=== PATIENT | female | born 1980 | race Caucasian/White ===

== ENCOUNTER 2016-09-03 11:43 | Outpatient (CLI) ==
[2014-04-11 00:38] VITALS: BMI 35.7
--- NOTE | 2016-09-03 12:43 | DI ---
EXAM: KUB HISTORY: Abdominal pain. FINDINGS: Normal bowel gas pattern. No organomegaly or suspicious calcification. There are surgica l clips superimposed over the right upper quadrant suggesting a post cholecystectomy state. COMPARISON: Normal bowel gas pattern.
== END 2016-09-03 11:44 | disposition home or self-care (01) ==
LOC: RAD 11:43
PROVIDERS: ATTEND Nurse Practitioner Family
DX: R10.9 Unspecified abdominal pain (principal)

== ENCOUNTER 2016-09-30 13:44 | Outpatient (CLI) ==
[2014-04-11 00:38] VITALS: BMI 35.7
[2016-09-30 14:14] LABS: FLU INTERNAL QC INTERNAL QC VALID; RAPID FLU A NEGATIVE (NEGATIVE); RAPID FLU B NEGATIVE (NEGATIVE)
[2016-09-30 15:24] LABS: BASOPHILS # (AUTO) 0.1 K/uL (0-0.2); BASOPHILS % (AUTO) 0.5 % (0.0-3.0); EOSINOPHILS # (AUTO) 0.2 K/ul (0.0-0.7); EOSINOPHILS % (AUTO) 1.6 % (0.0-7.0); HEMATOCRIT 42.3 % (37.0-47.0); HEMOGLOBIN 14.5 g/dl (12.0-16.0); IMMATURE GRANULOCYTE % (AUTO) 0.4 % (0.0-5.0); LYMPHOCYTES # (AUTO) 2.2 K/uL (0.60-3.4); LYMPHOCYTES % (AUTO) 19.8 (10.0-50.0); MEAN CORPUSCULAR HEMOGLOBIN 30.3 pg (27.0-31.0); MEAN CORPUSCULAR HGB CONC 34.3 (31.8-35.4); MEAN CORPUSCULAR VOLUME 88.5 fl (81.0-99.0); MONOCYTES # (AUTO) 0.6 K/uL (0.4-2.0); MONOCYTES % (AUTO) 5.1 (0-10); NEUTROPHILS # (AUTO) 7.9 K/ul (2.0-6.9); NEUTROPHILS % (AUTO) 72.6; PLATELET COUNT 263 10^3/uL (140-440); RED BLOOD COUNT 4.78 10^6/ul (4.20-5.40); WHITE BLOOD COUNT 10.89 K/ul (4.6-10.2)
[2016-09-30 15:30] LABS: MONO INTERNAL QC INTERNAL QC VALID
[2016-09-30 15:49] LABS: ALBUMIN 3.9 g/dL (3.4-5.0); ANION GAP 11.3; BILIRUBIN,TOTAL 0.52 mg/dL (0.00-1.20); BUN/CREATININE RATIO 9.52; CALCIUM 9.8 mg/dL (8.2-10.2); CREATININE 1.05 mg/dL (0.60-1.30); POTASSIUM 3.3 mmol/L (3.5-5.10); TOTAL PROTEIN 7.8 g/dL (6.4-8.2)
--- NOTE | 2016-09-30 16:12 | DI ---
EXAM: Two x-rays of the abdomen. Comparison: 09/03/2016. Reason for exam: Left flank pain. FINDINGS: Surgical clips are seen in the right upper quadrant consistent with cholecystectomy. The re are no definite calcific densities seen overlying the expected location of the kidneys or urinary bladder. The bowel gas pattern is nonspecific and nonobstructive. Impression: 1. No radiographic evidence of urolithiasis or nephrolithiasis. 2. Nonspecific, nonobstructive bowel gas pattern.
== END 2016-09-30 13:45 | disposition home or self-care (01) ==
LOC: LAB 13:44
PROVIDERS: ATTEND Nurse Practitioner Family
DX: R51 Headache (principal); R53.83 Other fatigue; R10.9 Unspecified abdominal pain; R50.9 Fever, unspecified; R52 Pain, unspecified; R19.7 Diarrhea, unspecified
CPT/HCPCS: 36415; 80053; 85025; 86308; 87651; 87804; 87880

== ENCOUNTER 2016-10-20 14:52 | Outpatient (CLI) ==
[2014-04-11 00:38] VITALS: BMI 35.7
--- NOTE | 2016-10-20 15:28 | DI ---
EXAM: Chest two view, frontal and lateral views. HISTORY: Chest pain. COMPARISON: None available. FINDINGS: The heart size is normal. There is no pulmonary vascular congestion. The lungs are jo r save for linear scarring or subsegmental atelectasis in the right middle lobe. No pleural effusio n or pneumothorax is seen. No acute osseous abnormality identified. 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 Clips seen in the right upper quadrant of the abdo men. IMPRESSION: No acute cardiopulmonary process.
--- NOTE | 2016-10-20 15:30 | DI ---
EXAM: Three views of the thoracic spine. History: Thoracic back pain. Findings: Cholecystectomy clips. No acute fracture or subluxation of the thoracic spine. A few ti ny anterior osteophytes. Subsegmental atelectasis or infiltrate within the right middle lobe. Impression: 1. No acute osseous abnormality. 2. Minimal degenerative disc disease. 3. Subsegmental atelectasis or pneumonia within the right middle lobe.
--- NOTE | 2016-10-20 15:31 | DI ---
EXAM: Unilateral ribs HISTORY: Pleurodynia COMPARISON: None TECHNIQUE: Multiple views left ribs were performed FINDINGS/IMPRESSION: No left rib fractures identified. 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 No visible pneumothorax.
== END 2016-10-20 14:53 | disposition home or self-care (01) ==
LOC: RAD 14:52
PROVIDERS: ATTEND Nurse Practitioner Family
DX: R07.81 Pleurodynia (principal); R25.3 Fasciculation; M54.9 Dorsalgia, unspecified; Z98.890 Other specified postprocedural states

== ENCOUNTER 2016-10-29 07:19 | Outpatient (CLI) ==
[2014-04-11 00:38] VITALS: BMI 35.7
[2016-10-29 07:47] LABS: BASOPHILS % (AUTO) 0.7 % (0.0-3.0); EOSINOPHILS # (AUTO) 0.1 K/ul (0.0-0.7); EOSINOPHILS % (AUTO) 1.9 % (0.0-7.0); HEMATOCRIT 45.9 % (37.0-47.0); HEMOGLOBIN 15.6 g/dl (12.0-16.0); IMMATURE GRANULOCYTE % (AUTO) 0.6 % (0.0-5.0); LYMPHOCYTES # (AUTO) 1.1 K/uL (0.60-3.4); LYMPHOCYTES % (AUTO) 19.8 (10.0-50.0); MEAN CORPUSCULAR HEMOGLOBIN 30.2 pg (27.0-31.0); MEAN CORPUSCULAR VOLUME 88.8 fl (81.0-99.0); MONOCYTES # (AUTO) 0.6 K/uL (0.4-2.0); MONOCYTES % (AUTO) 10.4 (0-10); NEUTROPHILS # (AUTO) 3.6 K/ul (2.0-6.9); NEUTROPHILS % (AUTO) 66.6; PLATELET COUNT 200 10^3/uL (140-440); RED BLOOD COUNT 5.17 10^6/ul (4.20-5.40); WHITE BLOOD COUNT 5.36 K/ul (4.6-10.2)
[2016-10-29 07:58] LABS: MONO INTERNAL QC INTERNAL QC VALID
[2016-10-29 08:01] LABS: ALBUMIN 3.7 g/dL (3.4-5.0); ANION GAP 13.9; BILIRUBIN,TOTAL 0.68 mg/dL (0.00-1.20); BUN/CREATININE RATIO 8.82; CALCIUM 9.2 mg/dL (8.2-10.2); CREATININE 1.02 mg/dL (0.60-1.30); POTASSIUM 3.9 mmol/L (3.5-5.10); TOTAL PROTEIN 7.4 g/dL (6.4-8.2)
--- NOTE | 2016-10-29 09:58 | CT ---
EXAM: CT thoracic spine with contrast HISTORY: Rib pain with history of pneumonia. COMPARISON: Thoracic spine x-ray 10/20/2016 and rib x-rays 10/20/2016 TECHNIQUE: Serial axial images of the thoracic spine were obtained after the administration of 100 CC of Visipaque 320 IV contrast. These were viewed in multiple planes. FINDINGS: Vertebral bodies demonstrate normal height, disc space and alignment. There are few scatt ered anterior disc osteophytes. There is no lytic or blastic lesion. There is mild scattered facet arthropathy. 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 There is no abnormal curvature of the spine. Soft tissues demonstrate patchy ground-glass opacities throughout the left lower lobe. The soft tis sues demonstrate ascending aortic ectasia. Limited views of the soft tissues in the upper abdomen d emonstrate a low attenuation lesion in the right hepatic lobe incompletely evaluated measuring 1 cm in diameter. There is no central or neural foraminal narrowing identified. IMPRESSION: 1. Left lower lobe ground-glass nodularity consistent with small airways infection/early bronchopne umonia. 2. No acute osseous abnormality of the thoracic spine with left rib deformity at L4-L5 consistent w ith findings on prior x-ray. 3. Indeterminate low attenuation lesion in the right hepatic dome relatively unchanged since 016 suggestive of hemangioma.
== END 2016-10-29 07:20 | disposition home or self-care (01) ==
LOC: RAD 07:19
PROVIDERS: ATTEND Nurse Practitioner Family
DX: Q76.6 Other congenital malformations of ribs (principal); R53.83 Other fatigue; R51 Headache
CPT/HCPCS: 36415; 80053; 85025; 86308; 87651; 87880

== ENCOUNTER 2016-11-02 14:54 | Outpatient (CLI) ==
[2014-04-11 00:38] VITALS: BMI 35.7
== END 2016-11-02 14:55 | disposition home or self-care (01) ==
LOC: CAR 14:54
PROVIDERS: ATTEND Nurse Practitioner Family
DX: R07.81 Pleurodynia (principal); R20.8 Other disturbances of skin sensation; R52 Pain, unspecified
CPT/HCPCS: 93005; 93010

== ENCOUNTER 2016-12-16 07:39 | Outpatient (CLI) ==
[2014-04-11 00:38] VITALS: BMI 35.7
[2016-12-16 08:14] LABS: CHOL/HDL RATIO 4.5 (4.5-5.5)
== END 2016-12-16 07:40 | disposition home or self-care (01) ==
LOC: LAB 07:39
PROVIDERS: ATTEND Nurse Practitioner Family
DX: E78.1 Pure hyperglyceridemia (principal)
CPT/HCPCS: 36415; 80061

== ENCOUNTER 2017-02-10 13:39 | Outpatient (CLI) ==
[2014-04-11 00:38] VITALS: BMI 35.7
[2017-02-10 13:52] LABS: BASOPHILS # (AUTO) 0.1 K/uL (0-0.2); BASOPHILS % (AUTO) 0.5 % (0.0-3.0); EOSINOPHILS # (AUTO) 0.1 K/ul (0.0-0.7); EOSINOPHILS % (AUTO) 1.3 % (0.0-7.0); HEMATOCRIT 43.2 % (37.0-47.0); HEMOGLOBIN 14.7 g/dl (12.0-16.0); IMMATURE GRANULOCYTE % (AUTO) 0.4 % (0.0-5.0); LYMPHOCYTES # (AUTO) 1.8 K/uL (0.60-3.4); LYMPHOCYTES % (AUTO) 19.1 (10.0-50.0); MEAN CORPUSCULAR HEMOGLOBIN 30.1 pg (27.0-31.0); MEAN CORPUSCULAR VOLUME 88.3 fl (81.0-99.0); MONOCYTES # (AUTO) 0.4 K/uL (0.4-2.0); MONOCYTES % (AUTO) 4.2 (0-10); NEUTROPHILS # (AUTO) 7.1 K/ul (2.0-6.9); NEUTROPHILS % (AUTO) 74.5; PLATELET COUNT 253 10^3/uL (140-440); RED BLOOD COUNT 4.89 10^6/ul (4.20-5.40); WHITE BLOOD COUNT 9.52 K/ul (4.6-10.2)
[2017-02-10 14:08] LABS: ALBUMIN/GLOBULIN RATIO 1.05; BILIRUBIN,TOTAL 0.76 mg/dL (0.00-1.20); BUN/CREATININE RATIO 6.93; CALCIUM 9.8 mg/dL (8.2-10.2); CREATININE 1.01 mg/dL (0.60-1.30); TOTAL PROTEIN 7.8 g/dL (6.4-8.2)
== END 2017-02-10 13:40 | disposition home or self-care (01) ==
LOC: LAB 13:39
PROVIDERS: ATTEND Nurse Practitioner Family
DX: R19.7 Diarrhea, unspecified (principal)
CPT/HCPCS: 36415; 80053; 82150; 83690; 85025

== ENCOUNTER 2017-06-16 07:34 | Outpatient (CLI) ==
[2014-04-11 00:38] VITALS: BMI 35.7
[2017-06-16 08:35] LABS: ALBUMIN 3.4 g/dL (3.4-5.0); ALBUMIN/GLOBULIN RATIO 0.87; ANION GAP 11.9; BILIRUBIN,TOTAL 0.7 mg/dL (0.00-1.20); BUN/CREATININE RATIO 12.5; CALCIUM 9.4 mg/dL (8.2-10.2); CHOL/HDL RATIO 4.5 (4.5-5.5); CREATININE 1.04 mg/dL (0.60-1.30); POTASSIUM 3.9 mmol/L (3.5-5.10); TOTAL PROTEIN 7.3 g/dL (6.4-8.2)
== END 2017-06-16 07:35 | disposition home or self-care (01) ==
LOC: LAB 07:34
PROVIDERS: ATTEND Nurse Practitioner Family
DX: E78.5 Hyperlipidemia, unspecified (principal); I10 Essential (primary) hypertension
CPT/HCPCS: 36415; 80053; 80061; 84443

== ENCOUNTER 2017-09-23 15:22 | Outpatient (CLI) ==
[2014-04-11 00:38] VITALS: BMI 35.7
== END 2017-09-23 15:23 | disposition home or self-care (01) ==
LOC: LAB 15:22
PROVIDERS: ATTEND Emergency Medicine
DX: J06.9 Acute upper respiratory infection, unspecified (principal); R19.7 Diarrhea, unspecified; E78.5 Hyperlipidemia, unspecified; I10 Essential (primary) hypertension
CPT/HCPCS: 36415; 80053; 85025

== ENCOUNTER 2017-09-29 09:11 | Outpatient (CLI) ==
[2014-04-11 00:38] VITALS: BMI 35.7
== END 2017-09-29 09:12 | disposition home or self-care (01) ==
LOC: LAB 09:11
PROVIDERS: ATTEND Nurse Practitioner Family
DX: R00.2 Palpitations (principal); R00.0 Tachycardia, unspecified
CPT/HCPCS: 36415; 80053; 84443; 85025; 93005; 93010

== ENCOUNTER 2017-12-27 08:04 | Outpatient (CLI) ==
[2014-04-11 00:38] VITALS: BMI 35.7
== END 2017-12-27 08:05 | disposition home or self-care (01) ==
LOC: LAB 08:04
PROVIDERS: ATTEND Nurse Practitioner Family
DX: E78.5 Hyperlipidemia, unspecified (principal); I10 Essential (primary) hypertension
CPT/HCPCS: 36415; 80053; 80061; 85025

== ENCOUNTER 2018-04-09 14:16 | Emergency (ER) ==
[2018-04-09 14:25] VITALS: BP 152/88; TEMP 98.5; BMI 38.2
[2018-04-09 15:04] LABS: URINE PREGNANCY TEST NEGATIVE (NEGATIVE)
--- NOTE | 2018-04-09 15:33 | CT ---
EXAM: CT scan of the abdomen pelvis without contrast HISTORY: Epigastric pain TECHNIQUE: Helical imaging of the abdomen pelvis was performed without contrast. 5 mm thin axial im ages and coronal and sagittal reconstructions were provided for interpretation. Comparison 05/13/2016 CT scan of the abdomen and pelvis. FINDINGS: The patient has had previous cholecystectomy. The liver, spleen, pancreas, adrenal glands and kidneys appear normal. The proximal ureters are normal size. The small and large bowel loops a re normal caliber. There is no free air. No retroperitoneal abnormalities are seen. The helical images obtained through the pelvis demonstrate a normal appearance of the rectum, urinary bladder. There is no free fluid seen within the pelvis. There is mild diverticular disease of the s igmoid colon without acute inflammation. The appendix appears normal. Lung bases are clear. No lyti c or blastic lesions are seen within the osseous structures. IMPRESSION: There is no bowel obstruction or acute inflammatory change seen within the abdomen and p tori. Previous cholecystectomy. There is no ureteral obstruction.
--- NOTE | 2018-04-09 16:13 | ED.PDOC ---
General ED Provider: Dr. LASHAY SADLER Chief Complaint: Abdominal Pain Stated Complaint: abdominal pain Time Seen by Physician: 14:17 (seen with dottie jean) Mode of Arrival: Walk-In Information Source: Patient Exam Limitations: No limitations Primary Care Provider: JOSE MANUEL VICENTE Nursing and Triage Documentation Reviewed and Agree: Yes Does patient meet sepsis criteria?: No System Inflammatory Response Syndrome: Not Applicable Sepsis Protocol: For patient's 13 years and over: Temp is 96.8 and below OR 101 and greater Pulse >90 BPM Resp >20/minute Acutely Altered Mental Status Are patient's symptoms suggestive of a new infection, such as: -Pneumonia -Skin, Soft Tissue -Endocarditis -UTI -Bone, Joint Infection -Implantable Device -Acute Abdominal Infection -Wound Infection -Meningitis -Blood Stream Catheter Infection -Unknown GI Complaint Exam - Abdominal Pain Complaint/Exam Onset: Gradual Duration: weeks Symptoms Are: Still present Timing: Intermittent Initial Severity: Mild Current Severity: Mild Location of Pain: Epigastric Radiates To: Denies: Chest, Back, Flank, LLQ, RLQ, Inguinal Character: Reports: Aching Aggravating: Reports: None Alleviating: Reports: None Associated Signs and Symptoms: Denies: Diaphoresis, Fever, Cough, Chest pain, Dizziness, Back pain, Constipation, Blood in stool, Dysuria, Urinary frequency, Decreased urine output, Decreased appetite, Vaginal bleeding, Vaginal discharge , Nausea, Vomiting, Diarrhea, Sore throat, Decreased activity Related History: Reports: Similar episode : 2 Para: 2 Hx Total # of Abortions (Spontaneous & Elective): 0 AAA Risk Factors: Reports: None Cardiac Risk Factors: Reports: None Ectopic Risk Factors: Reports: Maternal age >30 Ovarian Torsion Risk Factors: Reports: Ovarian cysts Surgical Obstruction Risk Factors: Reports: None Related Surgical History: Reports: None Patient Rh Status: Unknown Abdominal Findings: Present: None Differential Diagnoses: Constipation, Diverticulitis, Pancreatitis, Irritable Bowel Syndrome, Renal Colic, Ureteral Stone, UTI Review of Systems - Review Of Systems Constitutional: Reports: No symptoms Eyes: Reports: No symptoms Ears, Nose, Mouth, Throat: Reports: No symptoms Respiratory: Reports: No symptoms Cardiac: Reports: No symptoms GI: Reports: Abdominal pain, Diarrhea : Reports: No symptoms Musculoskeletal: Reports: No symptoms Skin: Reports: No symptoms Neurological: Reports: No symptoms Endocrine: Reports: No symptoms Hematologic/Lymphatic: Reports: No symptoms All Other Systems: Reviewed and Negative Past Medical History - Past Medical History Previously Healthy: Yes Endocrine: Reports: None Cardiovascular: Reports: None Respiratory: Reports: None Hematological: Reports: None Gastrointestinal: Reports: None Genitourinary: Reports: None Neuro/Psych: Reports: None Musculoskeletal: Reports: None Cancer: Reports: None Last Menstrual Period: now - Surgical History General Surgical History: Reports: None - Family History Family History: Reports: None - Social History Smoking Status: Never smoker Hx Substance Use: No Alcohol Screening: None Physical Exam - Physical Exam Appearance: Well-appearing, No pain distress, Well-nourished Eyes: MERCY, EOMI, Conjunctiva clear ENT: Ears normal, Nose normal, Oropharynx normal Respiratory: Airway patent, Breath sounds clear, Breath sounds equal, Respirations nonlabored Cardiovascular: RRR, Pulses normal, No rub, No murmur GI/: Soft, Nontender, No masses, Bowel sounds normal, No Organomegaly Musculoskeletal: Normal strength, ROM intact, No edema, No calf tenderness Skin: Warm, Dry, Normal color Neurological: Sensation intact, Motor intact, Reflexes intact, Cranial nerves intact, Alert, Oriented Psychiatric: Affect appropriate, Mood appropriate Interpretation - Radiology Interpretation Radiology Interpretation By: Radiologist Radiology Results: No acute changes Critical Care Note - Critical Care Note Total Time (mins): 0 Course - Course Hematology/Chemistry: 04/09/18 14:35 04/09/18 14:35 Orders, Labs, Meds: Lab Review 04/09/18 04/09/18 04/09/18 14:35 14:35 14:53 WBC 9.14 RBC 4.53 Hgb 13.5 Hct 38.8 MCV 85.7 MCH 29.8 MCHC 34.8 RDW Coeff of Josafat 12.5 Plt Count 231 Immature Gran % (Auto) 0.3 Neut % (Auto) 70.3 Lymph % (Auto) 22.4 [place] % (Auto) 4.8 Eos % (Auto) 1.8 Baso % (Auto) 0.4 Immature Gran # (Auto) 0.0 Neut # (Auto) 6.4 Lymph # (Auto) 2.1 [place] # (Auto) 0.4 Eos # (Auto) 0.2 Baso # (Auto) 0.0 Sodium 135.8 L Potassium 3.40 L Chloride 101.9 Carbon Dioxide 29.1 Anion Gap 8.20 BUN 12.2 Creatinine 1.03 Estimated GFR (MDRD) 60.00 BUN/Creatinine Ratio 11.84 Glucose 109.6 H Calcium 9.92 Total Bilirubin 0.45 AST 32.9 ALT 23.7 Alkaline Phosphatase 44.9 Total Protein 7.22 Albumin 4.11 Globulin 3.11 Albumin/Globulin Ratio 1.32 Amylase 81.2 Lipase 179.8 Urine Color Yellow Urine Clarity Clear Urine pH 5.5 Ur Specific [place] >=1.030 Urine Protein Negative Urine Glucose (UA) Negative Urine Ketones Negative Urine Blood Trace-intact Urine Nitrite Negative Urine Bilirubin Negative Urine Urobilinogen 0.2 Ur Leukocyte Esterase Negative Urine Microscopic RBC 0-2 Ur Squamous Epith Cells Not present Urine Test 04/09/18 14:53 WBC RBC Hgb Hct MCV MCH MCHC RDW Coeff of Josafat Plt Count Immature Gran % (Auto) Neut % (Auto) Lymph % (Auto) [place] % (Auto) Eos % (Auto) Baso % (Auto) Immature Gran # (Auto) Neut # (Auto) Lymph # (Auto) [place] # (Auto) Eos # (Auto) Baso # (Auto) Sodium Potassium Chloride Carbon Dioxide Anion Gap BUN Creatinine Estimated GFR (MDRD) BUN/Creatinine Ratio Glucose Calcium Total Bilirubin AST ALT Alkaline Phosphatase Total Protein Albumin Globulin Albumin/Globulin Ratio Amylase Lipase Urine Color Urine Clarity Urine pH Ur Specific [place] Urine Protein Urine Glucose (UA) Urine Ketones Urine Blood Urine Nitrite Urine Bilirubin Urine Urobilinogen Ur Leukocyte Esterase Urine Microscopic RBC Ur Squamous Epith Cells Urine Test Negative Orders Category Date Time Status AMYLASE Stat LAB 04/09/18 14:35 Completed CBC W/ AUTO DIFF Stat LAB 04/09/18 14:35 Completed COMPREHENSIVE METABOLIC PANEL Stat LAB 04/09/18 14:35 Completed LIPASE Stat LAB 04/09/18 14:35 Completed URINALYSIS C & S IF INDICATED Stat LAB 04/09/18 14:53 Completed URINE Stat LAB 04/09/18 14:[address] ABDOMEN/PELVIS WO CONTRAST Stat RADS 04/09/18 14:32 Completed Vital Signs: Temp Pulse Resp BP Pulse Ox 04/09/18 14:16 98.5 F 116 H 20 152/88 H 98 Departure - Departure Time of Disposition: 16:12 Disposition: HOME SELF-CARE Discharge Problem: Abdominal pain Instructions: Abdominal Pain (ED) Condition: Good Pt referred to PMD for follow-up: Yes IPMP verified?: No Additional Instructions: Please call your Family Physician as soon as possible to schedule a follow-up appointment. AND MAKENNA DISCUSSED WITH YOU, THE ABDOMINAL PAIN CAN EVOLVE IF , YOUR SICKER, FEVERISH, VOMITING THIS MAY MEAN THAT YOUR CONDITION IS GETTING WORSE AND WE MUST RECHECK YOUR ABDOMEN . AT THIS THIS NO SURGICAL ISSUES ARE NOTED Allergies/Adverse Reactions: Allergies prednisone Allergy (Intermediate, Verified 04/09/18 14:26) Rash cephalexin monohydrate [From Keflex] Allergy (Verified 04/09/18 14:26) Rash amoxicillin [Amoxicillin] Adverse Reaction (Verified 04/09/18 14:26) Chest Tightness cefprozil [From Cefzil] Adverse Reaction (Verified 04/09/18 14:26) Nausea erythromycin base [From E-Mycin] Adverse Reaction (Verified 04/09/18 14:26) Nausea ofloxacin [From Floxin] Adverse Reaction (Verified 04/09/18 14:26) Nausea Disposition Discussed With: Patient, Family
== END 2018-04-09 16:21 | disposition home or self-care (01) ==
LOC: ED 14:16
DX: R10.9 Unspecified abdominal pain (principal)
CPT/HCPCS: 36415; 80053; 81001; 81025; 82150; 83690; 85025; 99283

== ENCOUNTER 2018-06-20 10:05 | Outpatient (CLI) ==
--- NOTE | 2018-06-20 10:45 | DI ---
EXAM: Abdomen series. HISTORY: Generalized abdominal pain. COMPARISON: CT 04/09/2018. TECHNIQUE: Supine and upright views of the abdomen. FINDINGS: There is moderate gaseous distension of multiple small bowel loops with a few air-fluid le vels on the upright film. No free air seen under the diaphragm. Air and stool present in the colon. No soft tissue masses identified. Cholecystectomy clips are present. Phleboliths seen in the pelv is. Lung bases are clear. Mild thoracolumbar spinal curvature noted. IMPRESSION: Nonspecific small bowel pattern which could be due to enteritis, ileus or early obstruction.
== END 2018-06-20 10:06 | disposition home or self-care (01) ==
LOC: FCC-LAB 10:05
PROVIDERS: ATTEND Nurse Practitioner Family
DX: R10.84 Generalized abdominal pain (principal)
CPT/HCPCS: 36415; 80053; 81001; 83690; 85025

== ENCOUNTER 2018-06-27 07:55 | Outpatient (CLI) | END 2018-06-27 07:56 | disposition home or self-care (01) | LOC: LAB 07:55 | PROVIDERS: ATTEND Nurse Practitioner Family | DX: I10 Essential (primary) hypertension (principal); E78.5 Hyperlipidemia, unspecified | CPT/HCPCS: 36415; 80053; 80061 ==

== ENCOUNTER 2018-10-18 14:59 | Outpatient (CLI) | END 2018-10-18 15:00 | disposition home or self-care (01) | LOC: RHC-LAB 14:59 | PROVIDERS: ATTEND Nurse Practitioner Family | DX: J02.9 Acute pharyngitis, unspecified (principal) | CPT/HCPCS: 87651 ==

== ENCOUNTER 2018-11-07 10:35 | Outpatient (CLI) ==
--- NOTE | 2018-11-07 11:29 | MAMMO ---
EXAM: Bilateral digital screening mammogram (2-D and 3-D) History: Baseline screening Findings: MLO and CC views of bilateral breasts demonstrate scattered fibroglandular breast parenchy ma. CAD was reviewed by the radiologist. Tomosynthesis was performed. There is a focal asymmetry w ithin the right breast at 12 o'clock posterior depth. No suspicious microcalcifications. Impression: Indeterminate 12 o'clock right breast asymmetry. Recommend further evaluation with spot compression views with tomosynthesis BI-RADS 0, incomplete. Further evaluation needed.
== END 2018-11-07 10:36 | disposition home or self-care (01) ==
LOC: RAD 10:35
PROVIDERS: ATTEND Nurse Practitioner Family
DX: Z12.31 Encounter for screening mammogram for malignant neoplasm of breast (principal)

== ENCOUNTER 2018-11-11 09:25 | Outpatient (CLI) ==
--- NOTE | 2018-11-11 10:18 | US ---
EXAM: Right breast ultrasound. History: Right breast asymmetry. Comparison: Right diagnostic mammogram 11/11/2018 Technique: Multiple sonographic images through the right breast were obtained. Color duplex Doppler was used to interrogate vascular flow. Findings: No masses, cysts or fluid collections identified. Impression: Although no sonographic abnormalities are identified, recommend 6-month follow-up right mammogram to document stability of the probably benign right breast asymmetry. BI-RADS 3, probably benign
--- NOTE | 2018-11-11 10:23 | MAMMO ---
EXAM: Right digital diagnostic mammogram (2-D and 3-D) History: Right breast asymmetry. Comparison: Bilateral mammogram 11/07/2018 Findings: Additional views of the right breast were obtained. Tomosynthesis was performed. Questio nable mass within the right breast posterior depth at 12 o'clock . No suspicious microcalcifications . Impression: A questionable mass within the right breast posterior depth at 12 o'clock is indetermina te. Recommend further evaluation with right breast ultrasound. BI-RADS 0, incomplete. Needs further evaluation
== END 2018-11-11 09:26 | disposition home or self-care (01) ==
LOC: RAD 09:25
PROVIDERS: ATTEND Nurse Practitioner Family
DX: N64.89 Other specified disorders of breast (principal)